=== PATIENT | male | born 1990 | race Two or more races ===

== ENCOUNTER 2022-01-19 02:23 | Emergency (ER) | payer OTHER ==
[~2022-01-19] VITALS: Ht 172.7 cm; Wt 158.8 kg
[2022-01-19] MEDS ORDERED: IV NS 0.9% 1,000 ML IV PRN (02:30)
--- NOTE | 2022-01-19 02:45 | NUR ---
PT ANGELRA 38 FROM [facility] FOR C/O WEAKNESS. EMERGENCY MEDICINE NURSE PRACTITIONER HAS SBP OF 90s ON THE SCENE AND REC'D 400ML IV NS. PT A/O, R R EVEN AND UNLABORED, NO SOB NOTED. PT TAKEN TO ER BED 06. PT CONNECTED TO MONITORS.
[2022-01-19 02:50] LABS: BASOPHILS % (AUTO) 0.4 % (0.0-2.0); EOSINOPHILS % (AUTO) 0.1 % (0.0-6.0); HEMATOCRIT 48 % (39-51); HEMOGLOBIN 16.2 g/dL (13.5-17.5); LYMPHOCYTES # (AUTO) 1.8 K/uL (0.8-4.8); LYMPHOCYTES % (AUTO) 14.5 % (20.0-44.0); MEAN CORPUSCULAR HGB CONC 34 g/dl (31.0-36.0); MEAN CORPUSCULAR VOLUME 89 fL (80-96); MONOCYTES # (AUTO) 0.7 K/uL (0.1-1.30); MONOCYTES % (AUTO) 5.9 % (2.0-12.0); NEUTROPHILS # (AUTO) 9.8 K/uL (1.8-8.9); NEUTROPHILS % (AUTO) 79.1 % (43.0-81.0); PLATELET COUNT (AUTO) 223 K/uL (150-450); RED BLOOD CELL COUNT(AUTO) 5.47 MIL/uL (4.5-6.0); WHITE BLOOD COUNT (AUTO) 12.5 K/uL (4.3-11.0)
[2022-01-19 03:30] LABS: POTASSIUM 4.4 mmol/L (3.5-5.1)
[2022-01-19 04:28] VITALS: BP 110/68
[2022-01-19 04:29] LABS: CREATININE 1.8 mg/dL (0.6-1.3)
--- NOTE | 2022-01-19 04:56 | NUR ---
IV removed. Catheter intact and site benign. Pressure and 4x4 applied to site. No bleeding noted.Patient discharged to longterm in [employer]'s custody in stable condition. Written and verbal after care instructions given. Patient verbalizes understanding of instruction.
--- NOTE | 2022-01-19 04:56 | NUR ---
Patient discharged to home in stable condition. Written and verbal after care instructions given. Patient verbalizes understanding of instruction.
== END 2022-01-19 04:59 ==
LOC: ER 02:30
DX: E86.0 Dehydration (principal); N17.9 Acute kidney failure, unspecified; G40.909 Epilepsy, unspecified, not intractable, without status epilepticus
CPT/HCPCS: 36415; 80048; 85025; 96360; 99283; J7030